=== PATIENT | male | born 1940 | race Caucasian/White ===

== ENCOUNTER 2020-01-14 17:21 | Emergency (ER) | payer BC, SELFPAY ==
[~2020-01-14] VITALS: Ht 175.3 cm; Wt 64.9 kg
[2020-01-14 17:30] VITALS: BP 98/61
--- NOTE | 2020-01-14 17:30 | NUR ---
79 Y/O MALE BIBA FROM [facility] X NOW. 0/10 PAIN. [facility] & PT STATE THAT PT TESTED POSITIVE FOR COVID TODAY, BUT IS ASYMPTOMATIC. PT ALSO STATES HE [facility] BE[facility] OPEN WOUND ON THE LEFT FOOT. HAS BEEN STAYING AT THE FACILITY FOR X3 WEEKS, BUT FOR THE PAST 3 NIGHTS HAS BEEN UNKNOWINGLY BEEN ROOMED WITH A COVID POSITIVE PATIENT. A&O X4, VS ARE T: 98.2; P: 96, R: 18; BP:98/61 R/R EQUAL, AND UNLABORED. SIDE RAIL X2, BED IN LOW POSITION, WILL CONTINUE TO MONITOR. NKDA PMH: DM, HEART DISEASE, PACEMAKER
--- NOTE | 2020-01-14 17:41 | NUR ---
X-Ray at bedside.
--- NOTE | 2020-01-14 19:30 | NUR ---
REPORT GIVEN TO LEONOR AT [facility]
--- NOTE | 2020-01-14 19:42 | NUR ---
[facility] TRANSPORT TEAM ARRIVED.
--- NOTE | 2020-01-14 19:45 | NUR ---
Patient discharged with v/s stable. Written and verbal after care instructions given and explained. Patient alert, oriented and verbalized understanding of instructions. Ambulance Transport with [facility]. All questions addressed prior to discharge. ID band removed. Patient advised to follow up with PMD. Opportunity to ask questions provided and answered. ETA 30-40MIN.
== END 2020-01-14 19:45 | disposition home or self-care (01) ==
LOC: MED 17:21
DX: U07.1 COVID-19 (principal); E11.9 Type 2 diabetes mellitus without complications; I10 Essential (primary) hypertension; Z95.0 Presence of cardiac pacemaker; Z95.1 Presence of aortocoronary bypass graft
CPT/HCPCS: 71045; 99283; Q0092